=== PATIENT | male | born 1950 | race Two or more races ===

== ENCOUNTER 2018-11-24 09:36 | Outpatient (CLI) | payer OTHER | END 2018-11-24 09:41 | disposition home or self-care (01) | LOC: SONOGRAMA 09:36 | DX: E04.1 Nontoxic single thyroid nodule (principal) ==

== ENCOUNTER 2023-10-14 14:26 | Outpatient (CLI) | payer OTHER | END 2023-10-14 14:29 | disposition home or self-care (01) | LOC: SONOGRAMA 14:26 | PROVIDERS: ATTEND Pathology Anatomic Pathology & Clinical Pathology | DX: D34 Benign neoplasm of thyroid gland (principal); E07.89 Other specified disorders of thyroid; C73 Malignant neoplasm of thyroid gland; E06.9 Thyroiditis, unspecified ==

== ENCOUNTER 2023-11-14 07:09 | Outpatient (CLI) | payer OTHER | END 2023-11-14 07:15 | disposition home or self-care (01) | LOC: NUCLEAR 07:09 | PROVIDERS: ATTEND Psychiatry & Neurology Neurology | DX: C73 Malignant neoplasm of thyroid gland (principal); E06.9 Thyroiditis, unspecified | CPT/HCPCS: 78013; A9512 ==